=== PATIENT | male | born 1950 | race Caucasian/White ===

== ENCOUNTER 2017-12-19 17:09 | Emergency (ER) | payer OTHER ==
[~2017-12-19] VITALS: Ht 172.7 cm; Wt 78.5 kg
[2017-12-19 17:19] VITALS: Ht 172.7 cm; Wt 78.5 kg
[2017-12-19 19:02] VITALS: BP 141/96
== END 2017-12-19 19:02 | disposition home or self-care (01) ==
LOC: ED 17:09
DX: B02.9 Zoster without complications (principal)